=== PATIENT | female | born 1990 | race Caucasian/White ===

== ENCOUNTER 2024-12-16 01:28 | Emergency (ER) | payer BC, MEDICAID, SELFPAY ==
[2024-12-16 01:30] VITALS: BP 170/96; PULSE 73; RESP 16; TEMP 36.4; O2SAT 96; BMI 59.6
--- OUTSIDE RECORDS SUMMARY | 2024-12-16 01:34 | XMS_ITS | Clinical Summary ---
Author Organization [facility] Address [address] [place] [address] Phone Care Team Providers Care Superintendent Horticulture Name Role Phone Unavailable Primary Care Provider Unavailabl e Allergies Active Allergy Reactions Criticality Noted Date Comments Hydrocortisone Hives 06/08/2023 Medications losartan (COZAAR) 100 MG tablet Take one tablet (100 mg total) by mouth one (1) time a day Active amLODIPine (NORVASC) 10 MG tablet Take two tablets (20 mg total) by mouth one (1) time a day Active Social History Tobacco Use Types Packs/Day Years Used Date Smoking Tobacco: Never Smokeless Tobacco: Never Tobacco Cessation:Counseling Given: No Comments No Sex and Gender Information Value Date Recorded Sex Assigned at Not on file Legal Sex Female 10:25 AM CDT Gender Identity Not on file Sexual Orientation Not on file Last Filed Vital Signs Vital Sign Reading Time Taken Comments Blood Pressure 138/88 06/08/2023 10:40 AM CDT Pulse 101 06/08/2023 10:40 AM CDT Temperature 36.7 C (98.1 F) 06/08/2023 10:40 AM CDT Respiratory Rate 20 06/08/2023 10:40 AM CDT Oxygen Saturation 98% 06/08/2023 10:40 AM CDT Inhaled Oxygen Concentration - - Weight 191.4 kg (422 lb) 06/08/2023 10:40 AM CDT Height - - Body Mass Index - - Plan of Treatment Health Maintenance Due Date Last Done Comments Annual Depression Screening 02/27/2003 Annual Physical 02/27/2010 Hepatitis C Antibody Screen 02/27/2010 DTap/Tdap/Td Vaccines (1 - Tdap) 02/27/2011 Cervical Cancer Screening 02/27/2013 Flu Vaccine (#1) 10/15/2024 Influenza Vaccine 10/15/2024
--- OUTSIDE RECORDS SUMMARY | 2024-12-16 01:34 | XMS_ITS | Data Portability ---
Author Organization [place] [facility] Papo Godinez [facility] Address [address] [address] Care Team Providers Care Nursing Assistants Teacher Name Role Phone MARAL DE LEON Primary Care Provider Assessment Encounter Date Assessment Date Assessment LastModified by Organization Details LastModified Time 12/07/2024 12/07/2024 34-year-old female with a history of type 2 diabetes mellitus without complications, presenting for a follow-up of her chronic conditions, notably type 2 diabetes mellitus and essential hypertension, along with right ear discomfort. Current examination reveals ear fluid possible allergy-related , and stress-associat ed transient hypertension elevation observed during the visit. An A1c reassessment and continued monitoring of her BP at home are warranted. [email or web address] Not available 12/07/2024 12:53:47 Plan of Treatment Reminders Order Date Submit Date Provider Last Modified By Organization Details Last Modified Time Details Appointments None recorded. Lab hemoglobin A1C/hemoglo bin total, QN, blood 2024 025 [facility], [address] [facility], [place], [address], 13:11:33 HbA1c (hemoglobin A1c), blood 2024 025 [facility], [address], [address], [place], [address], 09:49:51 hemoglobin A1C/hemoglo bin total, QN, blood 2024 025 [place] [facility], [address], [address], [place], [address], 12:32:[address] referral 2024 025 [facility], [address], [place], [address], 11:36:37 Procedures None recorded. Surgeries None recorded. Imaging None recorded. Medication Orders escitalopra m 10 mg tablet 2024 [facility][id number], [address], [place], [place], [id number], 14:18:01 ondansetron 4 mg disintegrat ing tablet 2024 025 [facility] #35405, [address], [place], [place], [id number], 12:57:43 Farxiga 10 mg tablet 2024 025 [facility] #00485, [address], [place], [place], [id number], 14:34:58 Patient TargetsNo targets recorded. Patient Instructions Encounter Date Encounter Id Patient Instructions Last Modified By Organization Details Last Modified Time 12/07/2024 [id number] - Continue to monitor blood pressure at home and record readings. - Report any persistent high blood pressure to our clinic. - Use nasal spray as discussed for ear discomfort. - Visit the lab for A1c testing today. - Follow through with allergy medication as needed. - Return for follow-up in three months. [email or web address] Not available 12/07/2024 12:53:52 During the patient encounter, I discussed the current elevated readings of blood pressure, which are potentially stress-related, and advised ongoing monitoring with home devices. For her diabetes, we reiterated the importance of tracking her A1c, the results of which would guide further treatment modifications. We addressed her ear discomfort, likely linked to allergies, and introduced nasal spray use to potentially mitigate symptoms. We also reviewed the patient's history of allergic symptoms and suggested consistent management with medications already prescribed. 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 5 high Not Available [facility] [address] [facility] [address], [place], [address], 06/08/2024 12:32:24 08/28/19 25 08/27/2024 HBA1C hemaglobin A1C 7.4 4.2-6. 5 high Not Available [facility] [address] [facility] [address], [place], [address], 08/27/2024 11:21:27 12/08/19 25 12/07/2024 HBA1C hemaglobin A1C 8.0 4.2-6. 5 high Not Available [facility] [address] [facility] [address], [place], [address], 12/07/2024 13:11:33 Result Notes None recorded. Problems Name Problem SNOMED Code Status Onset Date Resolution Date Notes Provider Name and Address Organization Details Recorded Time Obesity 865024443 Completed 200906/14/2024 obesity; 0 9:36AM by Jeannette Bey LPN, Office Visit; Promoted; acuity set as *; Removal Reason: duplicate Rosalie valencia [place] Karyna [facility] L.L.CE[facility]angelist 11:30:36 [facility] hyperten ayad 46983217 Active 2024 Rosalie valencia [place] Karyna [facility] L.L.CEvangelist 5 11:29:47 Anxiety 19312115 Active 2024 [facility]CE[facility]angel[facility] 5 11:29:42 Hypergly cemia 68870281 Completed 202406/14/2024 Removal Reason: duplicate Rosalie valencia, [facility], MananL.CEvangelist 5 11:31:01 Morbid obesity 858005827 Active 2024 Rosalie valencia, [facility], L.L.CEvangelist 5 11:30:09 Type 2 diabetes mellitus 22249879 Active 2024 Rosalie valencia [facility], L.L.CEvangelist 5 11:30:43 Multiple skin tags 701751800 Active 2024 Rosalie valencia [facility], Jason.L.CEvangelist 5 11:30:17 Allergic rhinitis 21858147 Active 2024 Maral De Leon MD [address] [place] [address], [phone] [place] [address], L.L.CEvangelist 13:03:09 Problem Notes None recorded. Medical Equipment None Reported. Allergies Allergen ID Allergen Name Allergen Category Reaction Reaction Severity Criticality Documentation Date Start Date Code Code System Note Provider Name and Address Organization Details Recorded Time 55198 Ceclor medicatio n hives Not available Not available 09/11/2022 5 RxNorm React ion: Hives ; Comme nt: Recor ded 10/17 9:36A M by Jeannette delaney, PRODUCTION OPERATOR, Offic e Visit ; Promo jennifer; Genevieve frederick ce: *; ; Not Available [facility] 3 02:28:52 Medications Name Sig Start Date Stop Date Status Note LastModified by Organization Details LastModified Time atorvastati n 20 mg tablet TAKE 1 TABLET BY MOUTH EVERY DAY active Not Available Not Available No t Available glyburide 5 mg tablet Take 1 tablet every day by oral route. 2024 active Not Available Not Available Not Avai lable prednisone 20 mg tablet TAKE 1 TABLET BY MOUTH EVERY DAY FOR 5 DAYS 08/21 completed Not Available Not Available Not Available terbinafine HCl 250 mg tablet TAKE 1 TABLET BY MOUTH DAILY WITH FOOD FOR 14 DAYS active Not Available Not Available No t Available amoxicillin 875 mg tablet TAKE 1 TABLET BY MOUTH EVERY 12 HOURS FOR 7 DAYS 06/13 completed Not Available Not Available Not Available amlodipine 10 mg tablet TAKE 1 TABLET BY MOUTH EVERY DAY active Not Available Not Available No t Available hydroxyzine HCl 25 mg tablet TAKE 1 TO 2 TABLETS BY MOUTH THREE TIMES DAILY NEEDED FOR ANXIETY. MAXIMUM 1 TIME: 100 MG active Not Available Not Available No t Available ketoconazol e 2 % topical cream APPLY TWICE DAILY TO THE AFFECTED AREA ON BACK AND LEFT ARM FOR 2 WEEKS active Not Available Not Available No t Available ondansetron 4 mg disintegrat ing tablet DISSOLVE 1 TABLET ON THE TONGUE THREE TIMES DAILY NEEDED active Not Available Not Available No t Available losartan 100 mg tablet TAKE 1 TABLET BY MOUTH EVERY DAY active Not Available Not Available No t Available metformin ER 500 mg tablet,exte nded release 24 hr TAKE 1 TABLET BY MOUTH EVERY DAY 06/13 completed Not Available Not Available Not Available amoxicillin 875 mg-potassiu m clavulanate 125 mg tablet TAKE 1 TABLET BY MOUTH TWICE DAILY FOR 10 DAYS 02/27 completed Not Available Not Available Not Available escitalopra m 10 mg tablet TAKE 1 TABLET BY MOUTH EVERY DAY active Not Available Not Available No t Available Farxiga 10 mg tablet TAKE 1 TABLET BY MOUTH EVERY DAY active Not Available Not Available No t Available Trulicity 0.75 mg/0.5 mL subcutaneou s pen injector Inject 0.75 mg every week by subcutane ous route for 28 days. 05/18 completed Not Available Not Available Not Available Ozempic 0.25 mg or 0.5 mg (2 mg/1.5 mL) subcutaneou s pen injector 0.25mg sq weekly x 4 weeks then increase to 0.5mg x 4 weeks 05/18 completed Not Available Not Available Not Available Ozempic 1 mg/dose (4 mg/3 mL) subcutaneou s pen injector INJECT 1 MG EVERY WEEKLY SUBCUTANE OUS FOR 28 DAYS active Not Available Not Available No t Available Ozempic 2 mg/dose (8 mg/3 mL) subcutaneou s pen injector INJECT 2 MG SUBCUTANE OUSLY EVERY WEEK FOR 28 DAYS 12/07 completed Not Available Not Available Not Available Ozempic 0.25 mg or 0.5 mg (2 mg/3 mL) subcutaneou s pen injector 03/23 completed Not Available Not Available Not Available Vitals Date Recorded Body height Body mass index (BMI) Body weight Oxygen saturation Oxygen saturation in Arterial blood by Pulse oximetry Heart rate Respiratory rate Body temperature Systolic And Diastolic Provider Name and Address Organization Details Last Updated DateTime 5 175.26 cm 58.3 kg/m2 470432. 99 g 99 % 99 % 83 /min 18 /min 97.6 [degF] 132/80 mm[Hg] Rosalie Hay [facility] 5 14:20:22 Date Recorded Body height Body mass index (BMI) Body weight Oxygen saturation Oxygen saturation in Arterial blood by Pulse oximetry Heart rate Respiratory rate Body temperature Systolic And Diastolic Provider Name and Address Organization Details Last Updated DateTime 5 175.26 cm 57.9 kg/m2 422698. 21 g 97 % 97 % 90 /min 16 /min 98.5 [degF] 144/82 mm[Hg] Elginmary Lamar [facility] 5 12:50:33 Date Recorded Body height Body mass index (BMI) Body weight Body temperature Oxygen saturation Oxygen saturation in Arterial blood by Pulse oximetry Heart rate Systolic And Diastolic Provider Name and Address Organization Details Last Updated DateTime 5 175.26 cm 59.1 kg/m2 314771. 95 g 97.9 [degF] 93 % 93 % 67 /min 140/80 mm[Hg] Lucero Lu [facility] 5 10:39:21 Date Recorded Body height Body mass index (BMI) Body weight Body temperature Oxygen saturation Oxygen saturation in Arterial blood by Pulse oximetry Heart rate Systolic And Diastolic Provider Name and Address Organization Details Last Updated DateTime 5 175.26 cm 58.9 kg/m2 789559. 36 g 97.5 [degF] 98 % 98 % 79 /min 164/120 mm[Hg] Lucero Lu [facility] 12:39:33 Social History Question Answer Notes LastModified by Organizat ion Details LastModified Time Tobacco Smoking Status Current Every Day Smoker JOURDANMAYCOL VIRAMONTES erik [facility] 2024 10:21:19 Are You Blind Or Do You Have Difficulty Seeing? No Information not available 2024 What Is Your Level Of Caffeine Consumption? Heavy Information not available 2024 Are You Deaf Or Do You Have Serious Difficulty Hearing? No Information not available 2024 What Type Of Diet Are You Following? REGULAR Information not available 2024 Who Is Your Employer? [employer] Information not available 2024 What Was The Date Of Your Most Recent Tobacco Screening? 12/07/2024 [email or web address] Information not available 12/07/2024 What Is Your Relationship Status? Single Information not available 2024 How Much Tobacco Do You Smoke? 0.5 PPD Information not available 2024 Do You Have Difficulty Walking Or Climbing Stairs? No Information not available 2024 Do You Have Any Dietary Restrictions? No Information not available 2024 Sex: Unknown Functional Status Question Answer Note LastModified by Organizat ion Details LastModified Time Do you use any illicit or recreational drugs? No Information not available 2024 What is your level of alcohol consumption? None Information not available 2024 Are you currently employed? Yes Information not available 2024 What is your status? Not Information no t available 2024 Are you able to walk independently without assistance or assistive devices? YESWOREST Information not available 2024 Do you have difficulty doing errands alone? No Information not available 2024 Are you able to care for yourself independently? Yes Information not available 2024 Do you have difficulty dressing, bathing, grooming, or toileting? No Information not available 2024 Mental Status Question Answer Note LastModified by Organization D etails LastModified Time Do you have difficulty concentrating, remembering or making decisions? No Information no t available 2024 Family History Nothing Reported Notes:HTN: mother and father T2 Diabetic: mother and father Heart Attack: father Medical History Condition Response Coronary Artery Disease N Other N Gout N Kidney Stones N Blood Diseases N Hyperthyroidism N Breast Cancer N Blood Transfusion N Depression Y COPD N Lung Disease N Hypothyroidism N Defects or Inherited Disease N Developmental or Behavioral Disorders N Breast Problem N Difficulty Swallowing N Anesthesia Complications N Meniere's disease N Anxiety Disorder Y Muscle, Joint, or Bone Problems N Vision or Eye Problems N Arthritis N Polyps N Infertility N Cancer N Varicosities N Stroke N Endometriosis N Bladder or Kidney Problems N High Cholesterol Y Liver Disease N Fibromyalgia N Headaches N Kidney Disease N Allergies/Hayfever N Heart Problems N Ear or Hearing Problems N Hospitalizations N Thyroid Problems N GI Problems N ADD/ADHD N Skin Problems N Eating Disorder N Anemia N Constipation N Mental Illness N Ovarian Cancer N Diabetes Y Bedwetting N Seizures/Epilepsy N Tuberculosis N Eczema N Diverticulitis N Abuse/Domestic Violence N Asthma N Reflux/GERD Y Hepatitis N Heart Disease N Pulmonary Embolism N Pre-Eclampsia N Hypertension Y Chronic Ear Infections N Osteoporosis N Chicken Pox N Autism Spectrum Disorder (ASD) N Thrombophilias N Gynecological History Statement/Question Response Abnormal Pap N Date of Last Pap Smear Obstetrics History GPAL:G 0 P 0 0 0 0 Immunizations Vaccine Type Date Status Note Provider Nam e and Address Organization Details Recorded Time DTaP 3 completed Not Available [facility] 12/07/2024 14:10:24 OPV, trivalent 3 completed Not Available [facility] 12/07/2024 14:10:24 DTaP 3 completed Not Available [facility] 12/07/2024 14:10:24 Hib (PRP-T) 3 completed Not Available [facility] 12/07/2024 14:10:24 OPV, trivalent 3 completed Not Available [facility] 12/07/2024 14:10:24 DTaP 3 completed Not Available [facility] 12/07/2024 14:10:24 Hib (PRP-T) 3 completed [facility] Available [facility] 12/07/2024 14:10:24 Hep B, unspecified formulation 3 completed Not Available [facility] 12/07/2024 14:10:24 Hep B, unspecified formulation 3 completed Not Available [facility] 12/07/2024 14:10:24 Hep B, unspecified formulation 4 completed Not Available [facility] 12/07/2024 14:10:24 MMR 4 completed Not Available [facility] 12/07/2024 14:10:24 DTaP 4 completed Not Available [facility] 12/07/2024 14:10:24 Hib (PRP-T) 4 completed Not Available [facility] 12/07/2024 14:10:24 OPV, trivalent 4 completed Not Available [facility] 12/07/2024 14:10:24 DTaP 8 completed Not Available [facility] 12/07/2024 14:10:24 OPV, trivalent 8 completed Not Available [facility] 12/07/2024 14:10:24 MMR 8 completed Not Available [facility] 12/07/2024 14:10:24 Tdap 8 completed Not Available [facility] 12/07/2024 14:10:24 Past Encounters Encounter ID Performer Location Encounter Start Date Encounter Closed Date Diagnosis/Indication Diagnosis SNOMED-CT Code Diagnosis ICD10 Code Diagnosis IMO Codes Diagnosis Note [id number] Maral De Leon MD [facility] ([facility]) [address] [place] [id number] 2024 10:13:04 2024 11:03:02 Essential hypertension 70860933 I10 Blood pressure appears to be managed well with current medication s. Refills provided today. We will obtain lab work. Anxiety 67898866 F41.9 Restart escitalopr am as this was working well for her. Hyperglycemia 25601032 R 73.9 Given her potential history of prediabete s and family history of diabetes, will check an A1c today as part of her lab work. Morbid obesity 825120737 E66.01 Patient was encouraged to continue to lose weight. Will check lipid panel today. [id number] Maral De Leon MD [facility] ([facility]) [address] [place] [phone] 5 03/06/2024 14:27:30 03/06/2024 15:59:09 Type 2 diabetes mellitus 82070237 E11.9 Discussed her significan tly elevated A1c of 10.7. Discussed diabetic diet and encouraged 30 minutes of exercise daily. Discussed medication s and will start with metformin and the patient was also interested in starting a GLP-1. Will start with Ozempic. Discussed potential side effects of these medication s. Discussed the recommenda tions of a statin medication given her type 2 diabetes and the patient was agreeable. We will plan on following up in 3 months with a repeat A1c and urine microalbum in. [id number] PIEDAD LOPEZ [facility] ([facility]) [address] [place] [phone] 03/23/2024 13:03:40 03/23/2024 14:38:21 Pain in finger of left hand [id number] 60423 M79.645 Will splint finger. RICE. Nausea and vomiting 1693 1999 R11.2 Hold Metformin. MOnitor symptoms. Advised to call Dr De Leon office Tuesday with status. 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 Take with food.May use Victor Manuel's nasal inserts and also apply on chest. Push oral fluids. Consider nasal saline rinses and otc decongesta nt.Use tylenol/mo taylor for lynn. [id number] Maral De Leon MD [facility] ([facility]) [address] [place] [phone] 06/08/2024 11:34:42 06/11/2024 12:49:15 Type 2 diabetes mellitus 46854869 E11.9 [id number] Maral De Leon MD [facility] ([facility]) [address] [place] [phone] 06/13/2024 14:06:18 06/13/2024 14:50:27 Type 2 diabetes mellitus 09948745 E11.9 Patient's A1c is still significan tly elevated. Will start Farxiga. Will continue Ozempic at the 2 mg dose. Multiple skin tags 50486 7005 L91.8 [id number] Given the location of her skin tags we will send her to dermatolog y for removal. Essential hypertension 83445323 I10 Blood pressure appears to be managed well with current medication s. Refills provided today. We will obtain lab work. [id number] PIEDAD LOPEZ [facility] ([facility]) [address] [place] [phone] 5 08/21/2024 12:43:37 08/21/2024 13:00:01 Nausea and vomiting 33912810 R11.2 440075 Increase po fluids as tolerated. Use Zofran as prescribed . RTC with any new or worsening symptoms. [id number] Maral De Leon MD [facility] ([facility]) [address] [place] [phone] 08/27/2024 10:22:49 08/27/2024 11:10:06 Type 2 diabetes mellitus 86201748 E11.9 Check A1c today. Continue current medication s. We will have her take her dose of Ozempic today and see if she continues to get sick or if it was something else. Patient has previously taken the dose before without any issues. Anxiety 75681575 F41.9 Refill provided for escitalopr am. Essential hypertension 24989476 I10 Blood pressure is mildly elevated. Patient is to monitor blood pressure at home and notify the clinic of persistent elevations . Morbid obesity 281906961 E66.01 Patient was encouraged to continue to lose weight. Multiple skin tags 35641 7003 L91.8 92514207 Continue management through dermatolog y. [id number] Maral De Leon MD [facility] ([facility]) [address] [place] [phone] 12/07/2024 12:31:13 12/07/2024 13:25:12 Type 2 diabetes mellitus 74078474 E11.9 - Check hemoglobin A1c today. - Continue current diabetes medication s. - Administer today's dose of Ozempic and monitor for adverse reactions. Essential hypertension 41303708 I10 - Continue monitoring blood pressure at home. - Report any persistenc e in elevated blood pressure readings. Allergic rhinitis 009704 04 J30.9 5651102379 -continue antihistam ine, restart flonase Health Concerns Section Related Observation LastModified by Organization Detai ls LastModified Time None Recorded Concern Status LastModified by Organization Details LastModified Time None Recorded Advance Directives Directive None Recorded Payers Insurance Date Sequence Insurance Name Policy Number Policy Farr Covered Member ID Farr Member ID Guarantor Name 12/10/2024 1 [employer] [place] (MEDICA[place] REPLACEMENT - HMO) [id number] Alyx B Cloven [id number] Alyx B Cloven Notes Date Note Type Note Provider Name and Address Organization Details Recorded Time 06/13/2024 text/html Diabetes F/URepo rted by Patient This is a 34-year-old female comes in today for routine follow-up. The patient states that the metformin was making her nauseous so she has stopped the medication. That she was tolerating the Ozempic without any issues. She is tolerating the Ozempic and increaseD her dose to 2mg this tuesday. Patient had lab work done last week. Patient also would like to proceed with a referral to dermatology. The patient was in the process of doing that when she changed doctors. The patient has several skin tags on her eyelids as well as her neck. Maral De Leon MD [address] [place] [address], [phone], [facility] 06/14/2024 13:30:47 08/21/2024 text/html VomitingReported by PatientROS as noted in the HPI walk in patientpatient is here today for vomiting and nausea that started after taking her ozempic on Tuesday night. Patient said that she missed a week of her ozempic the week before. Patient has not had this happened in the past when taking ozempic. Denies any known ill contacts PIEDAD LOPEZ [address] [place], [phone], [facility] 08/21/2024 12:57:46 08/27/2024 text/html This is a 34 year old female here today to discuss type 2 diabetes mellitus, treated with Farxiga.Patient has seen dermatology and they did cryotherapy.Blood pressure is mildly elevated today but states it is better when she checks at home.Needs Lexapro refilled. Med has been working wellPatient reports that she had nausea and vomiting after her last Ozempic shot. Patient states that she has taken it previously without any issues. Patient states that she is due for her shot today. Maral De Leon MD [address] [place] [address], [phone], [facility] 08/27/2024 14:18:08 12/07/2024 text/html The patient is a 34-year-old female presenting with right ear discomfort with pressure and intermittent pain for several days. Her current visit is a three-month follow-up primarily for her type 2 diabetes mellitus without complications and essential hypertension. She reports her blood pressure is usually well-controlled based on home monitoring but notes today's elevation may be stress-related. Her previous A1c was recorded at 7.4%. There is a possibility that her ear discomfort is related to allergies due to some nasal congestion and seasonal changes. Maral De Leon MD [address] [place] [address], [phone], [facility] 12/07/2024 13:03:37 OBGyn Episode No OBEpisode recorded.
--- NOTE | 2024-12-16 01:59 | W.ED.DENTAL ---
HPI - Dental/Oral General: Chief complaint: Dental/Oral Stated complaint: Broke tooth causing pain,congested Time Seen by Provider: 12/16/24 01:46 CLOTH PICKER History of Present Illness: Patient is a 34-year-old female presenting with dental pain. She reports breaking a tooth approximately two weeks ago. The tooth has been asymptomatic until recently when she developed nasal congestion. Patient states that since she has been breathing through her mouth more due to nasal congestion, the tooth pain has worsened. She describes pain radiating to areas above and below the affected tooth. Patient denies fever or vomiting. She has not yet made a dental appointment but plans to call on Tuesday morning. Related Data Previous Rx's ?Medication ?Instructions ?Recorded amoxicillin 875 mg-potassium 1 tab PO BID #20 tabs 12/16/24 clavulanate 125 mg tablet hydrocodone 5 mg-acetaminophen 325 1 tab PO Q8H PRN pain #7 tabs 12/16/24 mg tablet Allergies Allergy/AdvReac Type Severity Reaction Status Date / Time cefaclor (From [facility]) Allergy Unknown Verified 12/16/24 01:39 CLOTH PICKER PFSH ED PFSH: Social History Smoking and tobacco/nicotine status: current every day tobacco/nicotine user Female Reproductive History: Date of last menstrual period: 12/08/24 Physical Exam HENMT: COMMON NORMALS: Normal external nose present NOSE: Normal external nose present and Abnormal mucous membranes and turbinates present boggy and erythematous TYMPANIC MEMBRANE: TM normal on the right MOUTH: lip normal and tongue normal TEETH & GINGIVA: Yes abnormal tooth and associated gingiva (abscess, r lower molar region. ) Eye: COMMON NORMALS: Equal, round and reactive pupils present and EOMs intact bilaterally PUPIL: Yes Equal, round and reactive pupils present Neck/C-Spine: GENERAL: Yes trachea midline and No anterior neck swelling Chest: CHEST: Yes Symmetrical chest wall rise Resp: COMMON NORMALS: normal respiratory effort and clear to auscultation bilaterally AUSCULTATION: clear to auscultation bilaterally Cardio: COMMON NORMALS: regular rate and regular rhythm RATE: regular rate RHYTHM: regular rhythm Neuro: LG COMA SCALE: document GCS findings Mcclave coma scale eye opening: Spontaneous Lg coma scale verbal response: Orientated Lg coma scale motor response: Obey commands Lg coma scale total score: 15 Course Vital Signs: Vital signs: Vital Signs Temperature 97.5 F L 12/16/24 01:30 CS T Pulse Rate 73 12/16/24 01:30 CS T Respiratory Rate 16 12/16/24 01:30 CS T Blood Pressure 170/96 12/16/24 01:30 CS T Pulse Oximetry 96 12/16/24 01:30 CS T Oxygen Delivery Me thod Room Air 12/16/24 01:30 CS T MDM - Dental/Oral Medical Decision Making Dental abscess. No signs of submandibular space swelling or compromise. Antibiotics. Pain control. Dental follow-up. No radiology studies performed this visit Discharge Plan Discharge Patient Disposition: Home Clinical Impression: Toothache, Gingival abscess Condition: Stable Prescriptions: New hydrocodone-acetaminophen 5-325 mg tablet 1 tab PO Q8H PRN (Reason: pain) Qty: 7 0RF amoxicillin-pot clavulanate 875-125 mg tablet 1 tab PO BID Qty: 20 0RF Discharge Orders: Discharge ED (Routine); Ordered 12/16/24 Ordered By: Javier Deluna Patient Instructions: Dental Abscess (ED), Toothache (ED), Opioid Safety, Pain Management, Patient Portal & Denisse Instructions Activity Restrictions/Additional Instructions: Follow-up with your dentist. Call Tuesday for an appointment. Print Language: Japanese Coding Level of Care Code ED Extrusion Die Template Maker for Awais Trent
[2024-12-16] MEDS: oxyCODONE-APAP 5-325 mg Tablet 2 TAB PO (02:00)
== END 2024-12-16 02:07 | disposition home or self-care (01) ==
PROVIDERS: Emergency Provider Emergency Medicine
DX: K08.89 Other specified disorders of teeth and supporting structures (principal); K05.20 Aggressive periodontitis, unspecified; Z72.0 Tobacco use
CPT/HCPCS: 99283; J9999

== ENCOUNTER 2025-01-04 20:51 | Emergency (ER) | payer BC, MEDICAID, SELFPAY ==
[2025-01-04] VITALS (7 sets, daily range): BP systolic 145–188; BP diastolic 51–87; PULSE 84–103; RESP 16; TEMP 36.7; O2SAT 94–99; BMI 56.8
--- OUTSIDE RECORDS SUMMARY | 2025-01-04 20:55 | XMS_ITS | Data Portability ---
Author Organization [place] [facility] Papo Godinez [facility] Address [address] [address] Care Team Providers Care Life Sciences Manager Name Role Phone MARAL DE LEON Primary Care Provider [phone] Assessment Encounter Date Assessment Date Assessment LastModified [...] bin total, QN, blood 2024 025 [facility]LIADEANNE [facility], [address], [place], [address], 13:11:33 HbA1c (hemoglobin A1c), blood 2024 025 [email or web address] [facility], [address], [address], [place], [address], 09:49:51 hemoglobin A1C/hemoglo bin total, QN, blood 2024 025 TETON [facility], [address], [address], [place], [address], 12:32:[address] referral 2024 025 [facility], [address], [place], [address], 11:36:37 Procedures None recorded. Surgeries None recorded. Imaging None recorded. Medication Orders escitalopra m 10 mg tablet 2024 [facility] #[id number], [address], [place], [place], [id number], 14:18:01 ondansetron 4 mg disintegrat ing tablet 2024 025 [facility] #12300, [address], [place], [place], [id number], 12:57:43 Farxiga 10 mg tablet 2024 025 [facility] #59356, [address], [place], [place], [id number], 14:34:58 Patient TargetsNo targets recorded. Patient Instructions Encounter Date Encounter Id Patient Instructions Last Modified By Organization Details Last Modified Time 12/07/2024 [id number] - Continue to monitor blood pressure at [...] Not available 12/07/2024 12:53:52 Reason for Referral Adjunct Teacher Referral for M ultiple skin tags Referring Physician: Maral De Leon, Family Medicine, Encounter Date: 06/13/2024 Results Created Date Observation Date Name Description Value Unit Range Abnormal Flag Note LastModifiedBy Organization Detail LastModifiedTime 06/09/1906/08/2024 HBA1C hemaglobin A1C 7.9 4.2-6. 5 high Not Available [facility] [address] [facility] [address], [place], [address], 06/08/2024 12:32:24 08/28/19 25 08/27/2024 HBA1C hemaglobin A1C 7.4 4.2-6. 5 high Not Available [facility] [address] [facility] [address], [place], [address], 08/27/2024 11:21:27 12/08/19 25 12/07/2024 HBA1C hemaglobin A1C 8.0 4.2-6. 5 high Not Available [facility] [address], [place], [address], 12/07/2024 13:11:33 Result Notes None recorded. Problems Name Problem SNOMED Code Status Onset Date Resolution Date Notes Provider Name and Address Organization Details Recorded Time Obesity 416157452 Completed 200906/14/2024 obesity; 0 9:36AM by Jeannette Bey LPN, Office Visit; Promoted; acuity set as *; Removal Reason: duplicate Rosalie [place]encia [place] [facility] 11:30:36 [facility] hyperten ayad 95582111 Active 2024 [place] [facility]angel[facility] 5 11:29:47 Anxiety 42640589 Active 2024 [facility] 5 11:29:42 Hypergly cemia 58801511 Completed 202406/14/2024 Removal Reason: duplicate Rosalie valencia, [facility] L.L[facility]CEvangelist 5 11:31:01 Morbid obesity 995790783 Active 2024 [facility] 5 11:30:09 Type 2 diabetes mellitus 52263106 Active 2024 [facility] 5 11:30:43 Multiple skin tags 269366450 Active 2024 [facility] 5 11:30:17 Allergic rhinitis 18719000 Active 2024 Maral De Leon MD [address] [place] [address], [phone], [facility] 5 13:03:09 Candidia sis of vagina 64505486 Active 2024 Maral De Leon MD [address] [place] [address], [phone], [facility] 5 08:35:32 Problem Notes None recorded. Medical Equipment None Reported. Allergies Allergen ID Allergen Name Allergen Category Reaction Reaction Severity Criticality Documentation Date Start Date Code Code System Note Provider Name and Address Organization Details Recorded Time 62745 Ceclor medicatio n hives Not available Not available 09/11/2022 5 RxNorm React ion: Hives ; Comme nt: Recor ded 10/17 9:36A M by Jeannette Paredes ns, SPORTS NUTRITIONIST, Offic e Visit ; Promo jennifer; Signi fickodak ce: *; ; Not Available [facility] 3 [...] Not Available Not Available Not Avai lable fluconazole 150 mg tablet TAKE 1 TABLET BY MOUTH EVERY 72 HOURS active Not Available Not Available No t Available hydrocodone 5 mg-acetamin ophen 325 mg tablet TAKE 1 TABLET BY MOUTH EVERY 8 HOURS NEEDED FOR PAIN active Not Available Not Available No t Available prednisone 20 mg tablet TAKE 1 TABLET [...] TAKE 1 TABLET BY MOUTH TWICE DAILY active Not Available Not Available No t Available escitalopra m 10 mg tablet TAKE [...] mass index (BMI) Body weight Oxygen saturation Heart rate Respiratory rate Body temperature Systolic And Diastolic Provider Name and Address Organization Details Last Updated DateTime 5 175.26 cm 58.3 kg/m2 287845. 99 g 99 % 83 /min 18 /min 97.6 [degF] 132/80 mm[Hg] Rosalie Guido [facility] 5 14:20:22 Date Recorded Body height Body mass index (BMI) Body weight Oxygen saturation Heart rate Respiratory rate Body temperature Systolic And Diastolic Provider Name and Address Organization Details Last Updated DateTime 5 175.26 cm 57.9 kg/m2 855787. 21 g 97 % 90 /min 16 /min 98.5 [degF] 144/82 mm[Hg] Keirymary Lamar [facility] 5 12:50:33 Date Recorded Body height Body mass index (BMI) Body weight Body temperature Oxygen saturation Heart rate Systolic And Diastolic Provider Name and Address Organization Details Last Updated DateTime 5 175.26 cm 59.1 kg/m2 834778. 95 g 97.9 [degF] 93 % 67 /min 140/80 mm[Hg] [facility] 10:39:21 Date Recorded Body height Body mass index (BMI) Body weight Body temperature Oxygen saturation Heart rate Systolic And Diastolic Provider Name and Address Organization Details Last Updated DateTime 175.26 cm 58.9 kg/m2 001869. 36 g 97.5 [degF] 98 % 79 /min 164/120 mm[Hg] [facility] 12:39:33 Social History Question Answer Notes LastModified by Organizat ion Details LastModified Time Tobacco Smoking Status Current Every Day Smoker [facility] 2024 10:21:19 Are You Blind Or Do You Have Difficulty Seeing? No Information not available 2024 What Is Your Level Of Caffeine Consumption? Heavy Information not available 2024 Are You Deaf Or Do You Have Serious Difficulty Hearing? No Information not available 2024 What Type Of Diet Are You Following? REGULAR Information not available 2024 Who Is Your Employer? [employer] Information not available 2024 What Was The Date Of Your Most Recent Tobacco Screening? 12/07/2024 Information not available 12/07/2024 What Is Your [...] Stones N Blood Diseases N Hyperthyroidism N Blood Transfusion N Breast Cancer N Depression Y Hypothyroidism N Lung Disease N COPD N Defects or Inherited Disease N Developmental [...] Recorded Time DTaP 3 completed Not Available [facility] 12/07/2024 14:10:24 OPV, trivalent 3 completed Not Available [facility] 12/07/2024 14:10:24 DTaP 3 completed Not Available [facility] 12/07/2024 14:10:24 Hib (PRP-T) 3 completed Not Available [facility] 12/07/2024 14:10:24 OPV, trivalent 3 completed Not Available [facility] 12/07/2024 14:10:24 DTaP 3 completed Not Available [facility] 12/07/2024 14:10:24 Hib (PRP-T) 3 completed Not Available [facility] 12/07/2024 14:10:24 Hep B, unspecified formulation 3 completed Not Available [facility] 12/07/2024 14:10:24 Hep B, unspecified formulation 3 completed Not Available [facility] 12/07/2024 14:10:24 Hep B, unspecified formulation 4 completed Not Available [facility] 14:10:24 MMR 4 completed Not Available [facility] 12/07/2024 14:10:24 DTaP 4 completed Not Available [facility] 12/07/2024 14:10:24 Hib (PRP-T) 4 completed Not Available [facility] 12/07/2024 14:10:24 OPV, trivalent 4 completed Not Available [facility] 12/07/2024 14:10:24 DTaP 8 completed Not Available [facility] 12/07/2024 14:10:24 OPV, trivalent 8 completed Not Available [facility] 12/07/2024 14:10:24 MMR 8 completed Not Available [facility] 12/07/2024 14:10:24 Tdap 8 completed Not Available [facility] 12/07/2024 14:10:24 Past Encounters Encounter ID Performer Location Encounter Start Date Encounter Closed Date Diagnosis/Indication Diagnosis SNOMED-CT Code Diagnosis ICD10 Code Diagnosis IMO Codes Diagnosis Note [id number] Maral De Leon MD [facility] ([facility]) [address] [place] [address] 2024 10:13:04 2024 11:03:02 Essential hypertension 78468821 I10 Blood pressure appears to be managed well with current medication s. Refills provided today. We will obtain lab work. Anxiety 92516099 F41.9 Restart escitalopr am as this was working well for her. Hyperglycemia 93994003 R 73.9 Given her potential history of prediabete s and family history of diabetes, will check an A1c today as part of her lab work. Morbid obesity 538207647 E66.01 Patient was encouraged to continue to lose weight. Will check lipid panel today. [id number] Maral De Leon MD [facility] ([facility]) [address] [place] [phone] 03/06/2024 14:27:30 03/06/2024 15:59:09 Type 2 diabetes mellitus 06405292 E11.9 Discussed her significan tly elevated A1c [...] a repeat A1c and urine microalbum in. [id number] PIEDAD LOPEZ [facility] ([facility]) [address] [place] [phone] 03/23/2024 13:03:40 03/23/2024 14:38:21 Pain in finger of left hand 8376932730 23247 M79.645 Will splint finger. RICE. Nausea and vomiting 1693 1999 R11.2 Hold Metformin. MOnitor symptoms. Advised to call Dr De Leon office Tuesday with status. [id number] PIEDAD DUKE [facility] ([facility]) [address] [place] [phone] 05/18/2024 16:39:10 05/18/2024 17:01:02 Acute pansinusitis 5660709 J01.40 Discussed use of antibiotic . Take with food.May use Victor Manuel's nasal inserts and also apply on chest. Push oral fluids. Consider nasal saline rinses and otc decongesta nt.Use tylenol/mo taylor for lynn. [id number] Maral De Leon MD [facility] ([facility]) [address] [place] [phone] 06/08/2024 11:34:42 06/11/2024 12:49:15 Type 2 diabetes mellitus 14689324 E11.9 [id number] Maral De Leon MD [facility] ([facility]) [address] [place] [phone] 06/13/2024 14:06:18 06/13/2024 14:50:27 Type 2 diabetes mellitus 53730236 E11.9 Patient's A1c is still significan tly elevated. Will start Farxiga. Will continue Ozempic at the 2 mg dose. Multiple skin tags 80676 7009 L91.8 [id number] Given the location of her skin tags we will send her to dermatolog y for removal. Essential hypertension 32389422 I10 Blood pressure appears to be managed well with current medication s. Refills provided today. We will obtain lab work. [id number] PIEDAD LOPEZ [facility] ([facility]) [address] [place] [phone] 08/21/2024 12:43:37 08/21/2024 13:00:01 Nausea and vomiting 98048586 R11.2 920147 Increase po fluids as tolerated. Use Zofran as prescribed . RTC with any new or worsening symptoms. [id number] Maral De Leon MD [facility] ([facility]) [address] [place] [phone] 08/27/2024 10:22:49 08/27/2024 11:10:06 Type 2 diabetes mellitus 38063506 E11.9 Check A1c today. Continue current medication s. We will have her take her dose of Ozempic today and see if she continues to get sick or if it was something else. Patient has previously taken the dose before without any issues. Anxiety 02598515 F41.9 Refill provided for escitalopr am. Essential hypertension 70504785 I10 Blood pressure is mildly elevated. Patient is to monitor blood pressure at home and notify the clinic of persistent elevations . Morbid obesity 506589823 E66.01 Patient was encouraged to continue to lose weight. Multiple skin tags 76736 7009 L91.8 [id number] Continue management through dermatolog y. [id number] Maral De Leon MD [facility] ([facility]) [address] [place] [address] 12/07/2024 12:31:13 12/07/2024 13:25:12 Type 2 diabetes mellitus 82234376 E11.9 - Check hemoglobin A1c today. - Continue current diabetes medication s. - Administer today's dose of Ozempic and monitor for adverse reactions. Essential hypertension 05451524 I10 - Continue monitoring blood pressure at home. - Report any persistenc e in elevated blood pressure readings. Allergic rhinitis 835339 04 J30.9 0346124248 -continue antihistam ine, restart flonase Health Concerns Section Related Observation LastModified by Organization Detai ls LastModified Time None Recorded Concern Status LastModified by Organization Details LastModified Time None Recorded Advance Directives Directive None Recorded Payers Insurance Date Sequence Insurance Name Policy Number Policy Farr Covered Member ID Farr Member ID Guarantor Name 12/10/2024 1 [employer] [place] [place]) [id number] Alyx B Cloven [id number] Alyx B Cloven Notes Date Note [...] as her neck. Maral De Leon MD [address] [place] [address], [phone], [facility] 06/14/2024 13:30:47 08/21/2024 text/html VomitingReported by [...] any known ill contacts PIEDAD LOPEZ [address] [place], [address], [facility] 08/21/2024 12:57:46 08/27/2024 text/html This is [...] her shot today. Maral De Leon MD [address] [place], [address], [facility] 08/27/2024 14:18:08 12/07/2024 text/html The patient [...] and seasonal changes. Maral De Leon MD [address] [place] [address], [phone], [facility] 12/07/2024 13:03:37 OBGyn Episode No OBEpisode recorded.
--- OUTSIDE RECORDS SUMMARY | 2025-01-04 20:55 | XMS_ITS | Continuity of Care Document ---
Author Organization [place] [facility] Papo Godinez, [facility] ([facility]) Address [address] [place] [address] Care Team Providers Care Head Grower Name Role Phone MARAL DE LEON Primary [...] A1C/hemoglo bin total, QN, blood 2024 025 [facility], [address], [address], [place], [address], 13:11:33 Referral None recorded. Procedures None recorded. Surgeries None recorded. Imaging None recorded. Medication Orders None recorded. Patient TargetsNo targets recorded. Patient Instructions Encounter Date Encounter Id Patient Instructions Last Modified By Organization Details Last Modified Time 12/07/2024 [id number] - Continue to monitor blood pressure at [...] Not available 12/07/2024 12:53:52 Reason for Referral None Reported. Results Created Date Observation Date Name Description Value Unit Range Abnormal Flag Note LastModifiedBy Organization Detail LastModifiedTime 12/08/19 25 12/07/2024 HBA1C hemaglobin A1C 8.0 4.2-6. 5 high Not Available [facility] [address] [facility] [address], [place], [address], 12/07/2024 13:11:33 Result Notes None recorded. Problems Name Problem SNOMED Code Status Onset Date Resolution Date Notes Provider Name and Address Organization Details Recorded Time Obesity 173296228 Completed 200906/14/2024 obesity; 0 9:36AM by Jeannette Bey LPN, Office Visit; Promoted; acuity set as *; Removal Reason: duplicate [facility]ad 25051036 Active 2024 [facility]encia [facility] 11:29:47 Anxiety 78577234 Active 2024 [facility]encia [facility] 11:29:42 Hypergly cemia 73993077 Completed 202406/14/2024 Removal Reason: duplicate Rosalie valencia [facility] 5 11:31:01 Morbid obesity 855391306 Active 2024 [facility] 11:30:09 Type 2 diabetes mellitus 91048862 Active 2024 Rosalie Hay erik, [facility] 5 11:30:43 Multiple skin tags 220505087 Active 2024 Rosalie valencia, [facility] 5 11:30:17 Allergic rhinitis 09400820 Active 2024 Maral De Leon MD [address] [place] [address], [phone], [facility] 5 13:03:09 Candidia sis of vagina 45548022 Active 2024 Maral De Leon MD [address] [place] [address], [phone], [facility] 5 08:35:32 Problem Notes None recorded. Medical Equipment None Reported. Allergies Allergen ID Allergen Name Allergen Category Reaction Reaction Severity Criticality Documentation Date Start Date Code Code System Note Provider Name and Address Organization Details Recorded Time 55268 Ceclor medicatio n hives Not available Not available 09/11/202296709 5 RxNorm React ion: Hives ; Comme nt: Recor ded 10/17 9:36A M by Jeannette delaney, [employer], Offic e Visit ; Promo jennifer; Genevieve [...] Last Updated DateTime 175.26 cm 58.9 kg/m2 492468. 36 g 97.5 [degF] 98 % 79 /min 164/120 mm[Hg] Lucero Lu [facility] 12:39:33 Social History Question Answer Notes LastModified by Organizat ion Details LastModified Time Tobacco Smoking Status Current Every Day Sm[facility] 2024 10:21:19 Are You Blind Or Do You Have Difficulty Seeing? No Information not available 2024 What Is Your Level Of Caffeine Consumption? Heavy Information not available 2024 Are You Deaf Or Do You Have Serious Difficulty Hearing? No Information not available 2024 What Type Of Diet Are You Following? REGULAR Information not available 2024 Who Is Your Employer? [employer] Information not available 2024 What Was The Date Of Your Most Recent Tobacco Screening? 12/07/2024 [email or web address] Information not available 12/07/2024 What Is Your [...] History Condition Response Coronary Artery Disease N Gout N Other N Blood Diseases N Kidney Stones N Hyperthyroidism N Breast Cancer N Blood Transfusion N Depression Y Hypothyroidism N Lung Disease [...] Recorded Time DTaP 3 completed Not Available [facility] 12/07/2024 14:10:24 OPV, trivalent 3 completed Not Available [facility] 12/07/2024 14:10:24 DTaP 3 completed Not Available [facility] 12/07/2024 14:10:24 Hib (PRP-T) 3 completed Not Available [facility] 12/07/2024 14:10:24 OPV, trivalent 3 completed Not Available [facility] 12/07/2024 14:10:24 DTaP 3 completed Not Available [facility] 12/07/2024 14:10:24 Hib (PRP-T) 3 completed Not Available [facility] 12/07/2024 14:10:24 Hep B, unspecified formulation 3 completed Not Available [facility] 12/07/2024 14:10:24 Hep B, unspecified formulation 3 completed Not Available [facility] 12/07/2024 14:10:24 Hep B, unspecified formulation 4 completed Not Available [facility] 12/07/2024 14:10:24 MMR 4 completed Not Available [facility] 12/07/2024 14:10:24 DTaP 4 completed Not Available [facility] 12/07/2024 14:10:24 Hib (PRP-T) 4 completed Not Available [facility] 12/07/2024 14:10:24 OPV, trivalent 4 completed Not Available [facility] 12/07/2024 14:10:24 DTaP 8 completed Not Available [facility] 12/07/2024 14:10:24 OPV, trivalent 8 completed Not Available [facility] 12/07/2024 14:10:24 MMR 8 completed Not Available [facility] 12/07/2024 14:10:24 Tdap 8 completed Not Available [facility] 12/07/2024 14:10:24 Past Encounters Encounter ID Performer Location Encounter Start Date Encounter Closed Date Diagnosis/Indication Diagnosis SNOMED-CT Code Diagnosis ICD10 Code Diagnosis IMO Codes Diagnosis Note [id number] Maral De Leon MD [facility] ([facility]) [address] [place] [address] 12/07/2024 12:31:13 12/07/2024 13:25:12 Type 2 diabetes mellitus 37093929 E11.9 - Check hemoglobin A1c today. - Continue current diabetes medication s. - Administer today's dose of Ozempic and monitor for adverse reactions. Essential hypertension 32916088 I10 - Continue monitoring blood pressure at home. - Report any persistenc e in elevated blood pressure readings. Allergic rhinitis 739338 04 J30.9 [id number] -continue antihistam ine, restart flonase Health Concerns Section Related Observation LastModified by Organization Detai ls LastModified Time None Recorded Concern Status LastModified by Organization Details LastModified Time None Recorded Payers Encounter Date Sequence Insurance Name Policy Number Policy Farr Covered Member ID Farr Member ID Guarantor Name 12/07/2024 1 [employer] [place] (MEDICAID REPLACEMENT - HMO) [id number] Alyx B Cloven [id number] Alyx B Cloven Notes Date Note Type Note Provider Name and Address Organization Details Recorded Time 12/07/2024 text/html The patient is a 34-year-old [...] and seasonal changes. Maral De Leon MD [address] [place] [address], [phone], [facility]angelist 12/07/2024 13:03:37 OBGyn Episode No OBEpisode recorded.
--- OUTSIDE RECORDS SUMMARY | 2025-01-04 20:55 | XMS_ITS | Clinical Summary ---
Author Organization [facility] Address [address] [place] [address] Phone Care Team Providers Care Bag Maker Name Role Phone Unavailable Primary Care Provider [...]
--- NOTE | 2025-01-04 21:26 | W.ED.EXTPRO ---
HPI - Extremity Problem General: Chief complaint: Extremity Problem,Nontraumatic Stated complaint: left arm numb with tingling fingers sudden headach Time Seen by Provider: 01/04/25 21:07 History of Present Illness: Patient is a 34-year-old female with history of hypertension, compliant to amlodipine, losartan, presents to the emergency room due to tingling and left hand. This occurred just under an hour ago. No word finding, no dysphagia. She did have a global headache. No photophobia, no phonophobia. Blood pressure is quite elevated at triage and consistently. Patient has difficulty with following a low-salt diet. She is compliant to her medications, including Ozempic. 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 Review of Systems General: Reports: 10 or more systems reviewed and unremarkable except in HPI and below Const: Denies: fever(s) or chills Eyes: Denies: change in vision or blurry vision ENMT: Denies: throat pain or mouth pain Card: Denies: chest pain or palpitations Resp: Denies: dyspnea or non-productive cough GI: Denies: abdominal pain, nausea or vomiting : Denies: flank pain, difficulty voiding or dysuria Musc: Denies: neck pain, back pain or extremity pain Neuro: Reports: headache(s) and sensory changes; Denies: numbness in extremities, weakness in extremities, lack of coordination, difficulty walking, frequent falls, dizziness, vertigo or Slurred speech present Psych: Denies: anxiety or depression [facility] ED PFSH: Social History Smoking and tobacco/nicotine status: current every day tobacco/nicotine user Physical Exam Const: COMMON NORMALS: no acute distress, average body habitus, patient oriented x3 and alert ORIENTATION/CONSCIOUSNESS: Yes oriented to person, Yes oriented to place and Yes oriented to time HENMT: COMMON NORMALS: normocephalic, atraumatic, hearing grossly normal bilaterally and TM's normal bilaterally HEAD & SCALP: normocephalic and atraumatic TYMPANIC MEMBRANE: TM's normal bilaterally Neck/C-Spine: COMMON NORMALS: full ROM, no lymphadenopathy, supple and no meningeal signs Lymph: LYMPHATIC: no lymphadenopathy noted Chest: COMMONS NORMALS: normal inspection of the chest and normal palpation of entire chest wall Resp: COMMON NORMALS: normal respiratory effort, No retractions and No use of accessory muscles Cardio: COMMON NORMALS: regular rate and regular rhythm RATE: regular rate RHYTHM: regular rhythm GI: COMMON NORMALS: Normal to inspection, nondistended, normoactive bowel sounds present, Soft to palpation, non-tender and No hepatosplenomegaly present PALPATION: Yes Soft to palpation and Yes No hepatosplenomegaly present : COMMON NORMALS: Yes no CVA tenderness BLADDER/KIDNEY EXAM: Yes no CVA tenderness Back/Pelvis: COMMON NORMALS: no CVA tenderness Extremity: COMMON NORMALS: normal to inspection, full ROM and capillary refill normal Neuro: COMMON NORMALS: patient oriented x3, CN's II-XII intact bilaterally and moves all extremities SENSORIUM/ORIENTATION: Yes alert, Yes oriented to person, Yes oriented to place and Yes oriented to time MENINGEAL SIGNS: Yes no meningeal signs COORDINATION/BALANCE: jdbsfd-gr-[id number] test normal and npko-ul-jssd test normal SPEECH: speech normal GAIT: Yes Normal gait present SENSORY EXAM: Yes extremities, Normal double simultaneous stimulation for sensation, Bilaterally intact graphesthesia and Bilaterally stereognosis intact MOTOR EXAM: 5/5 motor strength present throughout, Pronator motor function not present, no tremor noted, Motor fasciculations not present and Normal motor muscle tone present throughout COORDINATION: yesozl-im-zmer test normal and kori-li-uuyx test normal PUPIL EXAM: Normal pupillary reactivity/response: bilateral Psych: COMMON NORMALS: mental status grossly normal, Normal thought process present and cooperative THOUGHT PROCESS: Normal thought process present Skin: COMMON NORMALS: no rashes or lesions noted, no wounds and turgor normal GENERAL SKIN EXAM: no rashes or lesions noted and turgor normal Course Reevaluation(s): Reevaluation #1: Symptoms have completely improved/resolved on reevaluation at 2240. Vital Signs: Vital signs: Vital Signs Temperature 98.1 F 01/04/25 20:53 Pulse Rate 95 01/04/25 23:12 Respiratory Rate 16 01/04/25 20:53 Blood Pressure 148/82 01/04/25 23:12 Pulse Oximetry 95 01/04/25 23:12 Oxygen Delivery Me thod Room Air 01/04/25 23:05 MDM - Extremity (Nontraumatic) Medical Decision Making Patient is a 34-year-old female that presented to the emergency room due to sensation changes exclusively to her left hand, and headache. Blood pressure was quite elevated on presentation and continued to be on recheck and confirmation. Discussed goals of care with patient, differentials, including atypical migraine, association of blood pressure, and stroke. This is less likely associated with stroke or TIA. Patient would like to have blood pressure medication x 1, and see if this resolves her symptoms. The plan was clonidine 0.1 mg to see if this improves her symptoms, and it did. On recheck, patient had no headache, no sensory changes. Discussed with patient the easiest way to control blood pressure with her use of losartan, amlodipine, and is to follow a DASH diet. Patient/myself for interactive, I showed her on [employer] how to look up this type of diet, and gave her information. All of her questions were answered to her satisfaction. Patient will return to the ED if the symptoms occur again. She will also follow-up with her primary care physician. As needed clonidine use has been sent to the pharmacy and explained to patient. Medical Records I reviewed the patient's medical records. No radiology studies performed this visit Discharge Plan Discharge Patient Disposition: Home Clinical Impression: Hypertension Qualifiers: Hypertension type: unspecified Qualified Code(s): I10 - Essential (primary) hypertension Condition: Stable Prescriptions: New clonidine HCl 0.1 mg tablet 0.1 mg PO Q12H PRN (Reason: hypertensive emergency) Qty: 60 0RF Rx Instructions: for blood pressure >160 top number, or >90 bottom number No Action hydrocodone-acetaminophen 5-325 mg tablet 1 tab PO Q8H PRN (Reason: pain) Qty: 7 0RF amoxicillin-pot clavulanate 875-125 mg tablet 1 tab PO BID Qty: 20 0RF Discharge Orders: Discharge ED (Routine); Ordered 01/04/25 Ordered By: Toña Claire Referrals: Syed De Leon MD [Primary Care Provider, Family Practice] Patient Instructions: DASH Eating Plan (ED), Hypertension (ED), Patient Portal & Denisse Instructions Activity Restrictions/Additional Instructions: - Things we discussed: Your blood pressure, working your blood pressure up further for secondary hypertension with your primary care physician. Probiotics. This helps with side effects of Ozempic Dash eating plan. This helps with salt and hypertension, to reduce the amount of medications you intake, and control your blood pressure naturally. - Called into the pharmacy: Clonidine 0.1 mg. This is an emergency blood pressure medication. Do not take this on a regular basis. Take this if your top number is greater than 160, your bottom number is greater than 90. - You should: Take your blood pressure just 1 time a day, and take a log to your primary care physician follow-up. - When do I come back to the ED: If you have these symptoms occur again, it is important to be checked out formally. Feel free to come back to the ED for a medical screening evaluation, and any additional workup. I am proud of you and your success. Keep up the good work. Thank you for choosing [facility] for your healthcare needs today. You have been screened and evaluated and felt safe for discharge. Health conditions do change or evolve sometimes and as such it is important that you follow up with your Primary Doctor to be re checked, 3-5 days is a general good time frame for follow up. 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
== END 2025-01-04 23:15 | disposition home or self-care (01) ==
PROVIDERS: Emergency Provider Physician Assistant; PCP Family Medicine
DX: I10 Essential (primary) hypertension (principal); Z72.0 Tobacco use
CPT/HCPCS: 36415; 99283; J9999